=== PATIENT | female | born 1985 | race African-American/Black ===

== ENCOUNTER 2020-10-25 12:11 | Emergency (ER) | payer MEDICAID ==
[~2020-10-25] VITALS: Ht 175.3 cm; Wt 82.0 kg
[2020-10-25] MEDS ORDERED: IBUPROFEN 600MG TABLET PO ONE (13:00)
[2020-10-25 13:45] VITALS: BP 145/101
== END 2020-10-25 14:20 | disposition home or self-care (01) ==
LOC: ER 12:11
DX: S21.011A Laceration without foreign body of right breast, initial encounter (principal); J45.909 Unspecified asthma, uncomplicated; M19.90 Unspecified osteoarthritis, unspecified site; X99.9XXA Assault by unspecified sharp object, initial encounter; Y93.89 Activity, other specified; Y92.89 Other specified places as the place of occurrence of the external cause; Y99.8 Other external cause status
CPT/HCPCS: 12001; 71045; 99283